=== PATIENT | male | born 1985 | race Caucasian/White ===

== ENCOUNTER 2022-12-02 17:27 | Emergency (ER) | payer MEDICAID | END 2022-12-02 19:36 | disposition home or self-care (01) | LOC: JP.ED 17:27 | DX: S06.0X0A Concussion without loss of consciousness, initial encounter (principal); S46.911A Strain of unspecified muscle, fascia and tendon at shoulder and upper arm level, right arm, initial encounter; F17.210 Nicotine dependence, cigarettes, uncomplicated; W22.8XXA Striking against or struck by other objects, initial encounter; Y93.42 Activity, yoga | CPT/HCPCS: 70450; 99284 ==